=== PATIENT | female | born 1975 | race Caucasian/White ===

== ENCOUNTER 2018-01-31 19:07 | Emergency (ER) | payer SELFPAY ==
[~2018-01-31] VITALS: Ht 162.6 cm; Wt 80.0 kg
[~2018-01-31 19:07] MED LIST: DILA100C PO; LISI-360 PO; PHEN100 PO
[2018-01-31 19:17] VITALS: BP 148/79; PULSE 86; RESP 20; TEMP 99.1; O2SAT 100
--- NOTE | 2018-01-31 19:40 | PD ---
HPI Chief Complaint: Seizure Time Seen by Provider: 19:36 Travel History International Travel<30 days: No Contact w/Intl Traveler<30days: No Traveled to known affect area: No History of Present Illness HPI The patient is a 43 year old female who presents to the [facility] emergency department with a history of seizure activity that began prior to arrival. The patient reports that she was first diagnosed with seizure disorder in 2010. The patient reports that she is followed by Dr. Turner for her primary care. She has not been able to see him recently related to work schedule. She reports that she ran out of her Dilantin 3 months ago. The patient is unsure whether she hit her head with a seizure. Her daughter witnessed a seizure and is currently at the bedside. She reports that the seizure lasted for approximately 1 minute and then she had a second seizure rapidly that only lasted for 30 seconds. The patient had generalized clonic tonic seizure activity according to her daughter. She had a postictal state. The patient now is awake and alert. The patient complains of left ankle pain, headache. She reports that the headache is generalized and over bilateral temples. On review of systems otherwise, the patient denies having any known recent fevers, cough or congestion, neck pain, chest pain, shortness of breath, abdominal pain,urinary symptoms, or neurologic symptoms. The patient reports that today at work throughout the day she did have nausea without vomiting. She reports that she also had diarrhea that began yesterday, and she has 3 episodes of diarrhea today. She is unsure of the color of the stool. She is unsure if there is any blood in the stool as she reports that she does not look at her stool. The patient reports that she usually gets diarrhea when she has her menstrual cycle. She reports that her menstrual cycle is close to starting. LMP: January 03, 2017 [facility] Past Medical History Narrative Medical The patient's past medical history is significant for asthma, lupus, seizure disorder. Asthma: Yes Autoimmune Disease: Yes (Lupus) Blood Disorders: No Heart Rhythm Problems: No Cancer: No Cardiovascular Problems: No High Cholesterol: No Chest Pain: Yes Congestive Heart Failure: No COPD: No Diabetes: No Endocrine: Yes (Lupus) Genitourinary: Yes (kidney stones) Headaches: Yes Hypertension: Yes Immune Disorder: No Kidney Stones: Yes Musculoskeletal: Yes (chronic pain: right knee & lower back) Neurologic: Yes (seizures) Psychiatric: No Reproductive: No Respiratory: Yes Seizures: Yes (since 2011) Sleep Apnea: No Thyroid Disease: No ?: Not LMP: 01/03/18 : 5 Para: 5 Past Surgical History Narrative Surgical The patient's past surgical history is significant for ureteral stent placement removal 5, kidney stone removal, cholecystectomy. Abdominal Surgery: Yes (GALL BLADDER) Cholecystectomy: Yes Genitourinary Surgery: Yes (kidney surgery for stone removal/stent placement ( 13x from '95-'02 per pt)) Other Surgery: Yes (Kidney, cholecystectomy) Social History Alcohol Use: Yes (OCCASIONAL, ) Tobacco Use: No Substance Use: No Allergies-Medications (Allergen,Severity, Reaction): Coded Allergies: levofloxacin (Unverified Allergy, Severe, 01/31/18) morphine (Unverified Allergy, Severe, 01/31/18) Reported Meds & Prescriptions Reported Meds & Active Scripts Active Review of Systems Except as stated in HPI: all other systems reviewed are Neg General / Constitutional: No: Fever Eyes: No: Visual changes HENT: No: Headaches Cardiovascular: No: Chest Pain or Discomfort Respiratory: No: Shortness of Breath Gastrointestinal: No: Abdominal Pain Genitourinary: No: Dysuria Musculoskeletal: Positive: Arthralgias, Limited ROM, Pain Skin: No Rash Neurologic: Positive: Seizures, No: Weakness Psychiatric: No: Depression Endocrine: No: Polydipsia Hematologic/Lymphatic: No: Easy Bruising Physical Exam Narrative General: The patient is a well-developed well-nourished female in no acute distress. Head and Neck exam: Head is normocephalic atraumatic. Eyes: EOMI, pupils are equal round and reactive to light. Nose: Midline septum with pink mucous membranes Mouth: Dentition unremarkable. Moist mucus membranes. Posterior oropharynx is not erythematous. No tonsillar hypertrophy. Uvula midline. Airway patent. Neck: No palpable lymphadenopathy. No nuchal rigidity. No thyromegaly. Cardiovascular: Regular rate and rhythm without murmurs, gallops, or rubs. No pulse deficit to the extremities on simultaneous auscultation and palpation of her radial artery. Lungs: Clear to auscultation bilaterally. No wheezes, rhonchi, or rales. Abdomen: Soft, without tenderness to palpation in all 4 quadrants of the abdomen. No guarding, rebound, or rigidity. Normal bowel sounds are audible. No tenderness on palpation of McBurney's point. Extremities: No clubbing, cyanosis, or edema. 2+ pulses in all 4 extremities. No calf tenderness on palpation. The patient has no extremity pain on palpation, crepitus, or deformity, except in the area of interest, the left ankle. There is no swelling, erythema, or ecchymosis area there is no crepitus, however the patient does have tenderness on palpation over the distal lateral malleolus just anterior to this over the ligaments. There is no ligament laxity noted. Back: No spinous process tenderness to palpation. No costovertebral angle tenderness to palpation. Neurologic Exam: Cranial nerves 2-12 were intact on exam. Strength is 5/5 in all 4 extremities. No sensory deficits noted. Skin Exam: No rash noted. Intact skin that is warm and dry. Data Data Last Documented VS Vital Signs Date Time Temp Pulse Resp B/P (MAP) Pulse Ox O2 Delivery O2 Flow Rate FiO2 01/31/18 19:41 80 20 140/79 (99) 100 Nasal Cannula 2.00 01/31/18 19:17 99.1 Orders Orders Electrocardiogram (01/31/18 19:36) Complete Blood Count With Diff (01/31/18 19:36) Comprehensive Metabolic Panel (01/31/18 19:36) Prothrombin Time / Inr (Pt) (01/31/18 19:36) Act Partial Throm Time (Ptt) (01/31/18 19:36) Lipase (01/31/18 19:36) Urinalysis - C+S If Indicated (01/31/18 19:36) Magnesium (Mg) (01/31/18 19:36) Phenytoin (Dilantin) (01/31/18 19:36) Chest, Single Ap (01/31/18 19:36) Ct Brain W/O Iv Contrast(Rout) (01/31/18 19:36) Iv Access Insert/Monitor (01/31/18 19:36) Ecg Monitoring (01/31/18 19:36) Oximetry (01/31/18 19:36) Ed Urine Pregnancytest Poc (01/31/18 19:36) Drug Screen, Random Urine (01/31/18 19:36) Alcohol (Ethanol) (01/31/18 19:36) Ankle, Complete ([id number]) (01/31/18 ) Fosphenytoin Inj (Cerebyx Inj) (01/31/18 19:45) Sodium Chlor 0.9% 1000 Ml Inj (Ns 1000 M (01/31/18 19:45) Ondansetron Odt (Zofran Odt) (01/31/18 19:45) Acetaminophen (Tylenol) (01/31/18 19:45) Labs Laboratory Tests Test 01/31/18 19:25 White Blood Count 8.8 TH/MM3 Red Blood Count 4.30 MIL/MM3 Hemoglobin 14.0 GM/DL Hematocrit 42.1 % Mean Corpuscular Volume 97.8 FL Mean Corpuscular Hemoglobin 32.5 PG Mean Corpuscular Hemoglobin Concent 33.2 % Red Cell Distribution Width 13.8 % Platelet Count 298 TH/MM3 Mean Platelet Volume 9.1 FL Neutrophils (%) (Auto) 56.3 % Lymphocytes (%) (Auto) 33.4 % Monocytes (%) (Auto) 5.2 % Eosinophils (%) (Auto) 4.0 % Basophils (%) (Auto) 1.1 % Neutrophils # (Auto) 5.0 TH/MM3 Lymphocytes # (Auto) 2.9 TH/MM3 Monocytes # (Auto) 0.5 TH/MM3 Eosinophils # (Auto) 0.4 TH/MM3 Basophils # (Auto) 0.1 TH/MM3 CBC Comment DIFF FINAL Differential Comment Prothrombin Time 9.8 SEC Prothromb Time International Ratio 1.0 RATIO Activated Partial Thromboplast Time 27.1 SEC Total Protein 8.1 GM/DL Alkaline Phosphatase 60 U/L Alanine Aminotransferase (ALT/SGPT) 36 U/L Total Bilirubin 0.5 MG/DL Phenytoin (Dilantin) Level LESS THAN 0.4 MCG/ML MDM Medical Decision Making Medical Screen Exam Complete: Yes Emergency Medical Condition: Yes Medical Record Reviewed: Yes Differential Diagnosis Seizure activity due to medication noncompliance, versus electrolyte abnormality , versus intracranial abnormality, versus left ankle fracture, versus left ankle sprain Narrative Course During the course of the patient's emergency department visit, the patient's history, examination, and differential diagnosis were reviewed with the patient. The patient was placed on a bus driver/monitor with oximetry and frequent blood pressure monitoring. The patient had IV access obtained and blood work sent for analysis. A CT scan of the brain was ordered, a left ankle x-ray was ordered. The patient was initially provided normal saline at 100 mL/h, the patient was loaded with fosphenytoin 1 g IV The patient's laboratory studies were reviewed and remarkable for a CBC that is within normal limits, CMP was incompletely resulted at the time of the patient eloping from the emergency department and revealed a total bilirubin of 0.5, ALT 36, alk phos 60, total protein 8.1, otherwise labs were pending, PT PTT within normal limits, phenytoin level less than 0.4, alcohol level pending at the time the patient eloping Radiology studies were reviewed and remarkable for Last Impressions Head CT 01/31/181935 Signed Impressions: CONCLUSION: 1. No acute intracranial abnormalities. Chest X-Ray 01/31/181935 Signed Impressions: CONCLUSION: No active disease. Ankle X-Ray 01/31/18 0000 Signed Impressions: CONCLUSION: No acute findings. The patient according to the patient's nurse pulled out her own IV. The patient had not yet received the fosphenytoin that was ordered. The patient had not expressed any concern about leaving, however the patient was noted to be gone from the room with blood on the floor from her taking her own IV out. Diagnosis Primary Impression: Seizure disorder Additional Impressions: Noncompliance with medication regimen Left against medical advice Referrals: Primary Care Physician 1 day Patient Instructions: General Instructions, Recurrent Seizures in Adults (ED) Disposition: 07 AGAINST MEDICAL ADVICE Condition: Ann Marie Ibarra MD Jan 31, 2018 19:40
[2018-01-31 19:41] VITALS: BP 140/79; PULSE 80; RESP 20; O2SAT 100
[2018-01-31] MEDS ORDERED: SODIUM CHLOR 0.9% 1000 ML INJ 1,000 ML IV SCH (19:45)
[2018-01-31] MEDS ORDERED: FOSPHENYTOIN INJ 1,000 MGPE in SODIUM CHLORIDE 0.9% INJ 50 ML IV ONE (19:45)
[2018-01-31] MEDS ORDERED: ACETAMINOPHEN 325 MG TAB PO ONE (19:45)
[2018-01-31] MEDS ORDERED: ONDANSETRON ODT 4 MG TAB PO ONE (19:45)
--- NOTE | 2018-01-31 20:17 | RADRPT ---
EXAM DATE: 01/31/2018 7:55 PM EDT AGE/SEX: 43 years / Female INDICATIONS: Cough. CLINICAL DATA: This is the patient's initial encounter. Patient reports that signs and symptoms have been present for 1 day and indicates a pain score of 8/10. MEDICAL/SURGICAL HISTORY: . Seizures None. COMPARISON: No prior exams available for comparison. FINDINGS: A single AP view of the chest demonstrates the lungs to be symmetrically aerated without evidence of mass, infiltrate or effusion. The cardiomediastinal contours are unremarkable. Osseous structures a re intact. CONCLUSION: No active disease. Electronically signed by: Jose Guadalupe Silva MD 01/31/2018 8:16 PM EDT
--- NOTE | 2018-01-31 20:19 | RADRPT ---
EXAM DATE: 01/31/2018 7:56 PM EDT AGE/SEX: 43 years / Female INDICATIONS: Left lateral ankle pain post seizure. CLINICAL DATA: This is the patient's initial encounter. Patient reports that signs and symptoms have been present for 1 day and indicates a pain score of 9/10. MEDICAL/SURGICAL HISTORY: . Seizure None. COMPARISON: [facility], ANKLE LEFT COMPLETE ([id number]), 02/08/2012. . FINDINGS: Bony structures are intact and in normal alignment. Joints are intact without dislocation or signifi cant arthropathy. Osseous density is normal. Soft tissues are unremarkable. No radiopaque foreign bodies seen. CONCLUSION: No acute findings. Electronically signed by: Jose Guadalupe Silva MD 01/31/2018 8:18 PM EDT
[2018-01-31 20:31] LABS: BASOPHIL # 0.1 TH/MM3 (0-0.2); BASOPHIL % 1.1 % (0.0-2.0); EOSINOPHIL # 0.4 TH/MM3 (0-0.4); HEMATOCRIT 42.1 % (35.0-46.0); LYMPH % 33.4 % (9.0-44.0); LYMPHOCYTE # 2.9 TH/MM3 (1.0-4.8); MEAN CELL VOLUME 97.8 FL (80.0-100.0); MEAN CORPUSCULAR HEMOGLOBIN 32.5 PG (27.0-34.0); MEAN CORPUSCULAR HGB CONC 33.2 % (32.0-36.0); MEAN PLATELET VOLUME 9.1 FL (7.0-11.0); MONO % 5.2 % (0.0-8.0); MONOCYTE # 0.5 TH/MM3 (0-0.9); NEUT % 56.3 % (16.0-70.0); PLATELET COUNT 298 TH/MM3 (150-450); RED CELL DISTRIBUTION WIDTH 13.8 % (11.6-17.2); WHITE BLOOD COUNT 8.8 TH/MM3 (4.0-11.0)
[2018-01-31 20:47] LABS: PROTHROMBIN TIME - PATIENT 9.8 SEC (9.8-11.6)
--- NOTE | 2018-01-31 20:51 | RADRPT ---
EXAM DATE: 01/31/2018 8:35 PM EDT AGE/SEX: 43 years / Female INDICATIONS: Seizures. CLINICAL DATA: This is the patient's initial encounter. Patient reports that signs and symptoms have been present for 1 day and indicates a pain score of 0/10. MEDICAL/SURGICAL HISTORY: Hypertension. Asthma. Seizures . RADIATION DOSE: 56.35 CTDI (mGy) COMPARISON: [facility] [place], CT BRAIN W/O CONTRAST, 05/07/2016. . TECHNIQUE: CT of the head without contrast. Using automated exposure control and adjustment of the mA and/or kV according to patient size, radiation dose was kept as low as reasonably achievable to ob tain optimal diagnostic quality images. DICOM format image data is available electronically for revi ew and comparison. FINDINGS: Cerebrum: The ventricles are normal for age. No evidence of midline shift, mass lesion, hemorrhage or acute infarction. No extraaxial fluid collections are seen. Posterior Fossa: The cerebellum and brainstem are intact. The 4th ventricle is midline. The cerebe llopontine angle is unremarkable. Extracranial: The visualized portion of the orbits is intact. Skull: The calvaria is intact. No evidence of skull fracture. CONCLUSION: 1. No acute intracranial abnormalities. Electronically signed by: Jose Guadalupe Silva MD 01/31/2018 8:50 PM EDT
[2018-01-31 21:00] LABS: ALT (GPT) 36 U/L (10-53)
[2018-01-31 21:03] LABS: ALKALINE PHOSPHATASE 60 U/L (45-117); PHENYTOIN (DILANTIN) LESS THAN 0.4 MCG/ML (10.0-20.0); TOTAL BILIRUBIN ADULT 0.5 MG/DL (0.2-1.0); TOTAL PROTEIN 8.1 GM/DL (6.4-8.2)
[2018-01-31 21:17] LABS: AST (GOT) 24 U/L (15-37); BICARBONATE 20.1 MEQ/L (21.0-32.0); BLOOD UREA NITROGEN 15 MG/DL (7-18); CALCIUM 9.3 MG/DL (8.5-10.1); CHLORIDE 110 MEQ/L (98-107); CREATININE 0.78 MG/DL (0.50-1.00); GLOMERULAR FILTRATION RATE 80 ML/MIN (>89); GLUCOSE,RANDOM 74 MG/DL (74-106); MAGNESIUM 2.1 MG/DL (1.5-2.5); SODIUM (NA) 140 MEQ/L (136-145)
== END 2018-01-31 21:10 | disposition left against medical advice (07) ==
LOC: NEPE 19:07
DX: G40.909 Epilepsy, unspecified, not intractable, without status epilepticus (principal); M25.572 Pain in left ankle and joints of left foot; R51 Headache; R11.0 Nausea; R19.7 Diarrhea, unspecified; Z91.14 Patient's other noncompliance with medication regimen; Z53.20 Procedure and treatment not carried out because of patient's decision for unspecified reasons; I10 Essential (primary) hypertension; J45.909 Unspecified asthma, uncomplicated; M32.9 Systemic lupus erythematosus, unspecified; Z87.442 Personal history of urinary calculi; Z88.5 Allergy status to narcotic agent
CPT/HCPCS: 70450; 71045; 73610; 80053; 80185; 80307; 83690; 83735; 84703; 85025; 85610; 85730; 99285; J7030